=== PATIENT | male | born 1960 | race Caucasian/White ===

== ENCOUNTER 2018-06-30 12:53 | Day surgery (SDC) | payer OTHER ==
--- NOTE | 2018-06-29 15:27 | PDGENHP ---
History and Physical - Chief Complaint LIH - History of Present Illness Otherwise healthy 57yo M referred with left groin bulge. Saw his PCP, noted the hernia. States that it is painful but reducible. No signs of incarceration History Information - Allergies/Home Medication List Allergies/Adverse Reactions: No Known Allergies Allergy (Unverified 06/25/18 12:03) Home Medications: Aspirin 06/25/18 [Last Taken Unknown] Ibuprofen 06/25/18 [Last Taken Unknown] I have personally reviewed and updated: family history, medical history - Social History Smoking Status: Never smoked Review of Systems Review of Systems: ROS: 10pt was reviewed & negative except for what was stated in HPI & below Physical Exam Physical Exam: Constitutional: no apparent distress, appears nourished, not in pain Eyes: PERRL, anicteric sclera, EOMI Ears, Nose, Mouth, Throat: moist mucous membranes, hearing normal, ears appear normal, no oral mucosal ulcers Cardiovascular: regular rate and rhythym, no murmur, rub, or gallop, No edema Respiratory: no respiratory distress, no rales or rhonchi, clear to auscultation Gastrointestinal: normoactive bowel sounds, other (reducible LIH) Genitourinary: no bladder fullness, no bladder tenderness Skin: warm, normal color, no rashes or abrasions, no fluctuance, no induration, No mottled Musculoskeletal: full muscle strength, no muscle tenderness, normal joint ROM, no joint effusions Psychiatric: interacting appropriately, not anxious, not encephalopathic, thought process linear Lymph, Heme, Immunologic: no cervical LAD, no supraclavicular LAD Assessment & Plan Assessment: 57yo M, reducible LIH Plan: to OR for robotic assisted repair, RBA discussed
[2018-06-30] MEDS ORDERED: ceFAZolin 2 GM/DEXTROSE 100 ML IV ONE (13:24)
[2018-06-30] MEDS ORDERED: LR 1,000 ML IV ONE (13:25)
--- NOTE | 2018-06-30 14:29 | PDHPUP ---
History & Physical Update H&P update statement: This history and physical update is based on an assessment of the patient which was completed after admission or registration (within 24 hours), but prior to the surgery/procedure. H&P update: H&P reviewed & patient examined, no change in patient's condition since H&P completed
[2018-06-30] MEDS ORDERED: fentaNYL 100 MCG/2 ML INJ ONE ×3 (14:46→16:33)
[2018-06-30] MEDS ORDERED: PROPOFOL 200 MG/20 ML VIAL ONE (14:46)
[2018-06-30] MEDS ORDERED: ROCURONIUM 50 MG/5 ML VIAL ONE (14:49)
[2018-06-30] MEDS ORDERED: ONDANSETRON 4 MG/2 ML VIAL ONE (14:51)
[2018-06-30] MEDS ORDERED: DEXAMETHASONE 4 MG/ML VIAL ONE (14:51)
[2018-06-30] MEDS ORDERED: BUPIVACAINE/EPI 0.5% 30 ML SDV ONE (14:51)
[2018-06-30] MEDS ORDERED: DEXAMETHASONE 4 MG/ML VIAL IVP PRN (14:53)
[2018-06-30] MEDS ORDERED: HYDROmorphONE/DILAUDID 1 MG/ML INJ IVP PRN (14:53)
[2018-06-30] MEDS ORDERED: ONDANSETRON 4 MG/2 ML VIAL IVP PRN (14:53)
[2018-06-30] MEDS ORDERED: oxyCODONE IR 5 MG TAB PO PRN (14:53)
[2018-06-30] MEDS ORDERED: LR 500 ML IV PRN (14:53)
[2018-06-30] MEDS ORDERED: NALOXONE HCL 0.4 MG/ML INJ IVP PRN (14:53)
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
[2018-06-30] MEDS ORDERED: GLYCOPYRROLATE 0.2 MG/1 ML VIAL ONE (15:35)
[2018-06-30] MEDS ORDERED: SUGAMMADEX SODIUM 200 MG/2 ML VIAL IVP ONE (15:54)
--- NOTE | 2018-06-30 15:55 | POSTOPPROG ---
Post Op Note Date of Operation: 06/30/18 Surgeon: Alf Moreno International Student Counselor: Tiffany Anesthesiologist: Simin Anesthesia: GET(General Endotracheal) Pre-op Diagnosis: left inguinal hernia Post-op Diagnosis: same Procedure: Robot assisted LIH c mesh Findings: large direct defect Inf/Abcess present in the surg proc area at time of surgery?: No Depth: Superfical (Skin SQ)
--- NOTE | 2018-06-30 16:06 | POSTANESTH ---
Post Anesthetic Evaluation Cardiovascular Status: Normal, Stable Respiratory Status: Normal, Stable Level of Consciousness/Mental Status: Can Participate in Eval, Mildly Sleepy, Arousable Pain Control: Adequate, Prn Tx Ordered Nausea/Vomiting Control: Adequate, Prn Tx Ordered
[2018-06-30] MEDS: fentaNYL 100 MCG/2 ML INJ IVP PRN ×2 (16:35→16:48)
[2018-06-30] MEDS ORDERED: oxyCODONE IR 5 MG TAB ONE (18:25)
[2018-06-30 19:21] VITALS: BP 106/66
--- NOTE | 2018-06-30 20:57 | GOP ---
[f rep st] OPERATIVE REPORT DATE OF OPERATION: 06/30/2018 SURGEON: Alf Moreno MD DRY CLEANING COUNTER CLERK: Louisa Allen CFA ANESTHESIA: General endotracheal. ANESTHESIOLOGIST: Mik Duval DO PREOPERATIVE DIAGNOSIS: Left inguinal hernia. POSTOPERATIVE DIAGNOSIS: Left inguinal hernia. PROCEDURE PERFORMED: Robotic assisted left inguinal hernia repair with mesh. FINDINGS: Large direct defect on the left side, successfully reduced and repaired with Bard 3D Light large-size mesh. SPECIMENS: None. ESTIMATED BLOOD LOSS: 5 cc. DESCRIPTION OF PROCEDURE: The patient was greeted in the preoperative suite. Once again, risks, benefits, and alternatives were discussed. Consent was signed. He was then brought back to the operative suite, placed on the OR table in supine position. After all anesthesia machines including SCDs were on and functioning, [facility] time-out was performed. After successful induction of general anesthesia, the patient's abdomen was prepped and draped in typical sterile fashion. I commenced the procedure by making a supraumbilical cutdown through which the Veress needle was passed. I achieved pneumoperitoneum to 15 mmHg CO2, which was well tolerated by the patient. Through this, I then inserted an 8 mm trocar. I then inserted 2 additional 8 mm trocars, 1 in the right and 1 in the left upper quadrant, both under direct visualization. The patient was then placed in gentle Trendelenburg position. I turned my attention toward the patient's left lower quadrant. There was a large direct defect noted. I then made a peritoneal flap just adjacent to the ASIS and carried this all the medial to the Prince's ligament. I carried this down. Successfully skeletonized the cord structures and reduced the direct sac off the defect. He did have a cord lipoma which was successfully taken down as well. I found no other significant pathology in the indirect, femoral, or obturator spaces. I then brought in my Bard 3D Light large-size mesh. I tacked it to the Prince's ligament with an interrupted 2-0 Vicryl stitch, as well as on either side of the direct defect. I then closed the peritoneum with a running 3-0 V-Loc suture. I interrogated the right side and found no other significant pathology on the contralateral side. I then removed my ports and evacuated the pneumoperitoneum. The skin was closed with Monocryl. Dermabond was placed. The patient was then extubated in the operative suite and taken to the PACU in satisfactory condition. DRAINS: None. INSTRUMENT COUNT: All counts were reported as correct x2. /[id number]/MODL MTDD
== END 2018-06-30 19:22 | disposition home or self-care (01) ==
LOC: FSGY 12:53
PROVIDERS: ATTEND Surgery
DX: K40.90 Unilateral inguinal hernia, without obstruction or gangrene, not specified as recurrent (principal); C91.Z0 Other lymphoid leukemia not having achieved remission
CPT/HCPCS: C1781; J0690; J1100; J2405; J2704; J3010